=== PATIENT | female | born 1965 | race Caucasian/White ===

== ENCOUNTER 2017-12-02 11:42 | Outpatient (CLI) | payer BC ==
--- NOTE | 2017-12-02 14:58 | Diagnostic Imaging Report ---
Indication: Cough Technique: 2 views of the chest Comparison: None Findings: Lungs and pleural spaces are clear. The heart size is normal Impression: Negative
== END 2017-12-02 13:42 | disposition home or self-care (01) ==
LOC: RAD 11:42
DX: Z01.811 Encounter for preprocedural respiratory examination (principal); R07.9 Chest pain, unspecified; J98.9 Respiratory disorder, unspecified; R05 Cough
CPT/HCPCS: 71046